=== PATIENT | female | born 1995 | race Caucasian/White ===

== ENCOUNTER 2016-08-28 14:45 | Emergency (ER) | payer BC ==
[2016-08-28 15:00] VITALS: BP 121/83; PULSE 83; RESP 16; TEMP 98.1; O2SAT 98
--- NOTE | 2016-08-28 15:24 | UCPHY ---
H & P Patient Type: Established Chief Complaint Nursing Narrative: c/o headache and sinus congestion, states feels like sinus infection HPI/ROS: Chief complaint: Congestion, headache HPI: 23-year-old woman presenting with 2 days of mild headache and some congestion. 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 States that she has had a couple of days of nasal congestion, mild sore throat, some mild headache. She has not had any cough. No shortness of breath. No fevers or chills. No chest pain. No abdominal pain. No urinary symptoms. Last menstrual cycle was 3 weeks ago was normal. She denies past medical history. ROS: 10 point Review of Systems is negative except as noted in the HPI. Physical exam: Gen: Awake, Alert, No Distress HEENT: Nose: no rhinorrhea Eyes: PERRLA, EOMI Mouth: Moist mucosa mild pharyngeal erythema, there is wound point of exudate on her left tonsil. There is no tonsillar hypertrophy. Uvula is midline without evidence of peritonsillar abscess Neck: Supple, no JVD, very mild anterior cervical lymphadenopathy Chest: nontender, lungs clear to auscultation Heart: S1, S2 normal, no murmur Abd: Soft, non-tender, no guarding Back: no CVA tenderness, no midline tenderness Ext: no edema, non-tender Skin: no rash Neuro: CN II-XII intact, Sensation grossly intact, Strength 5/5 in bilateral upper and lower extremities - Personal History LMP (Females 10-55): Extended Cycle BCP/Inj - Medical/Surgical History Hx Asthma: No Hx Chronic Respiratory Disease: No Hx Diabetes: No Hx Cardiac Disease: No Hx Renal Disease: No Hx Cirrhosis: No Other PMH: denies - Family History Significant Family History: No pertinent family hx - Social History Smoking Status: Never smoked Constitutional: Initial Vital Signs Temperature (C) 36.7 C 08/28/16 14:58 Heart Rate 83 08/28/16 14:58 Respiratory Rate 16 08/28/16 14:58 Blood Pressure 121/83 H 08/28/16 14:58 O2 Sat (%) 98 08/28/16 14:58 O2 Delivery Mode Room Air Allergies/Adverse Reactions: No Known Allergies Allergy (Unverified 03/09/16 14:18) Home Medications: Medication Instructions Recorded Primo 03/09/16 Amoxicillin 500 mg PO TID 7 Days 08/28/16 Nuvaring 08/28/16 Departure - Departure Clinical Impression: Viral upper respiratory infection Instructions: Viral Syndrome (ED) Additional Instructions: If you're not feeling better in the next couple of days or you develops fever, chills, worsening sore throat you may start the antibiotic. Drink plenty of fluids. You may take [id number] cold remedies for symptom relief. Follow up with her primary care physician in 3-4 days if symptoms are not improving. Referrals: Jeannette Casiano MD [Primary Care Provider] - As per Instructions Prescriptions: Amoxicillin 500 mg PO TID 7 Days - PQRS PQRS Measurement: NA
== END 2016-08-28 15:42 | disposition home or self-care (01) ==
LOC: CED 14:45
DX: J06.9 Acute upper respiratory infection, unspecified (principal)
CPT/HCPCS: G0463-PO